=== PATIENT | female | born 1950 | race African-American/Black ===

== ENCOUNTER 2016-07-09 09:11 | Day surgery (SDC) | payer BC ==
[~2016-07-09 09:11] MED LIST: ACETAMINOPHEN 1,000 MG/100 ML BTL IV ONE
[2016-07-09 09:37] LABS: BLOOD UREA NITROGEN 12 mg/dL (7-17); CREATININE 0.9 mg/dL (0.52-1.04); EST GLOMERULAR FILTRATION RATE > 60 ml/min; GLUCOSE,RANDOM 106 mg/dL (70-110)
[2016-07-09] MEDS ORDERED: FENTANYL PF 100MCG/2ML VIAL IV ONE (14:00)
[2016-07-09] MEDS ORDERED: ROPIVACAINE HCL (NAROPIN) /PF 5MG/ML 20ML VIAL IV ONE ×2 (14:00→15:29)
[2016-07-09] MEDS ORDERED: MIDAZOLAM HCL 2MG/2ML VIAL IV ONE (14:00)
[2016-07-09] MEDS ORDERED: PROPOFOL 10 MG/ML VIAL IV ONE (14:00)
[2016-07-09] MEDS ORDERED: LIDOCAINE 2% MDV (20MG/ML) 20ML VIAL IV ONE (14:00)
[2016-07-09] MEDS ORDERED: HYDROCODONE/APAP 7.5/325MG TABLET PO ONE (15:29)
--- NOTE | 2016-07-14 11:21 | Operative Note ---
DATE OF SURGERY: 07/09/2016 Surgeon: Gerardo Lin DO PREOPERATIVE DIAGNOSES: 1. Carpal tunnel syndrome of the right wrist. 2. De Quervain stenosing tenosynovitis, right wrist. POSTOPERATIVE DIAGNOSES: 1. Carpal tunnel syndrome of the right wrist. 2. De Quervain stenosing tenosynovitis, right wrist. OPERATION: 1. Decompression of right median nerve of the wrist using 3.5 loop magnification. 2. De Quervain fasciotomy of the right wrist. PROCEDURE: This 65-year-old female was taken to the operating room, placed in a supine position on the operating room table. Assisted regional anesthesia was used, and the right upper extremity was elevated, prepped with Hibiclens, and draped in the usual sterile fashion. It was exsanguinated and the Esmarch bandage was used as the tourniquet. We proceeded with the de Quervain release first by making an incision 1 cm proximal to the radial styloid on the radial aspect of the wrist. The dissection was carried down through the skin and subcutaneous tissue. Superficial branch of the radial nerve was identified and protected. The first dorsal compartment was easily identified and split from proximal to distal. With the tendons under direct vision, we saw that the extensor brevis was in a different compartment, and subsequently this was incised to release all tendons. The tendons themselves otherwise appeared to be normal. The wound was irrigated with lactated Ringer solution. Hemostasis obtained with the electrocautery. Subcutaneous tissue closed with 4-0 Vicryl and skin with a running 4-0 nylon suture. We then directed our attention to the carpal canal, and a palmar incision was utilized following the hypothenar crease from the level of the base of the web space of the thumb to the flexor crease of the wrist. Dissection carried down through the skin and subcutaneous tissue. Palmar fascia was divided in line with the skin incision to expose the flexor retinaculum. This was punctured and then split to its proximal margin with the contents of the carpal tunnel under direct vision. The transverse carpal ligament was transected along its ulnar border, and the radial flap was raised to expose the entire median nerve under the transverse carpal ligament. Recurrent motor branch of the nerve was identified and found to be intact. Mild hyperemia of the nerve was present. Some thickening of the tenosynovium also identified. The wound was irrigated and hemostasis obtained with the electrocautery. The tourniquet released. The wound was closed with 6-0 nylon suture. Sterile dressing applied with plaster and splint immobilization, and the patient taken to the recovery room, in satisfactory condition. GROSS PATHOLOGY: This patient demonstrated the extensor tendon for the first dorsal compartment to be in separate compartments as described above. The median nerve demonstrated mild hyperemia and some thickening of the tenosynovium was identified. CC: WYATT Talley
== END 2016-07-09 12:10 | disposition home or self-care (01) ==
LOC: SUR 09:11
PROVIDERS: ATTEND Orthopaedic Surgery
DX: G56.01 Carpal tunnel syndrome, right upper limb (principal); M65.4 Radial styloid tenosynovitis [de Quervain]; I10 Essential (primary) hypertension
CPT/HCPCS: 80048; 93005; 93010; 64721; 25020; 01810; 64450; J3010; J2795; 76942